=== PATIENT | female | born 1970 | race Two or more races ===

== ENCOUNTER 2016-07-18 15:58 | Emergency (ER) | payer BC ==
[2016-07-18] MEDS ORDERED: IOPAMIDOL 300 (61%) 100 ML VIAL IV ONE (15:59)
[2016-07-18 16:18] LABS: SPECIFIC GRAVITY 1.015 (1.001-1.030); URINE BILIRUBIN NEGATIVE (NEGATIVE); URINE BLOOD TRACE (NEGATIVE); URINE GLUCOSE (UA) NEGATIVE (NEGATIVE); URINE LEUKOCYTE ESTERASE NEGATIVE (NEGATIVE); URINE NITRITE NEGATIVE (NEGATIVE); URINE PROTEIN NEGATIVE (NEGATIVE); URINE UROBILINOGEN NORMAL (0-1 mg/dl)
[2016-07-18] MEDS ORDERED: MAALOX/LIDO2%VISC/SIMETHICONE 40 ML BOT ONE (16:19)
[2016-07-18] MEDS ORDERED: FAMOTIDINE 20 MG TABLET ONE (16:19)
[2016-07-18] MEDS ORDERED: SUCRALFATE 1 G/10 ML DOSE ONE (16:19)
[2016-07-18 16:20] LABS: URINE APPEARANCE CLEAR; URINE COLOR LIGHT YELLOW
[2016-07-18 16:21] LABS: HCG,QUALITATIVE URINE NEGATIVE
[2016-07-18 16:28] LABS: URINE BACTERIA FEW; URINE EPITHELIAL CELLS 0-1 /hpf; URINE RBC 0-2 /hpf; URINE WBC 0-1 /hpf
[2016-07-18 16:36] LABS: ABSOLUTE NEUTROPHIL COUNT 5.1 K/mm3 (1.8-7.7); BASO % 0.4 % (0.2-1.0); EOS # 0.2 (0.0-0.5); EOS % 2.9 % (0.9-2.9); HEMATOCRIT 41.7 % (37.0-47.0); HEMOGLOBIN 14.1 gm/l (12.0-16.0); IMM NEUT% 0.1 % (0-1); MEAN CELL VOLUME 88.5 fl (81.0-99.0); MEAN CORPUSCULAR HEMOGLOBIN 29.9 pg (27.0-31.0); MEAN CORPUSCULAR HGB CONC 33.8 g/dl (33.0-37.0); MEAN PLATELET VOLUME 9.3 fl (7.4-10.4); MONO # 0.5 (0.0-0.8); MONO % 6.3 % (4-12); NEUT % 65.3 % (43-75); PLATELET COUNT 301 K/mm3 (130-400)
[2016-07-18 16:55] LABS: ALB/GLOB RATIO 1.3 (>1.0); ALBUMIN 4.1 gm/dL (3.5-5.7); CALCIUM 9.2 mg/dL (8.6-10.3)
--- NOTE | 2016-07-18 17:26 | CT ---
CT ABDOMEN AND PELVIS WITH CONTRAST HISTORY: Epigastric pain. TECHNIQUE: Following intravenous administration of 100cc of Isovue-300, contiguous axial images were acquired from the lung bases to the ischial tuberosities. Oral contrast was not administered. COMPARISON:None. FINDINGS: LUNG BASES: No gross airspace consolidation or pleural effusion. LIVER: No focal lesion. SPLEEN: No focal lesion. STOMACH: Limited evaluation due to decompression over wall thickening at the anterolateral aspect is suggested. No hiatal hernia. PANCREAS: No focal lesion. ADRENAL GLANDS: No mass effect. KIDNEYS: No focal lesion. No collecting system dilatation. GALLBLADDER: Surgically absent, common bile duct measures up to 14 mm in width. BOWEL: Moderate fecal loading. Limited assessment of the distal colon due to decompression. No abnormal small bowel dilatation. APPENDIX: Normal gas-filled appendix. PELVIC ORGANS: No gross mass effect. Prominence of left-sided periuterine vessels and left ovarian vein. FREE FLUID: No gross free fluid identified. ABDOMINOPELVIC LYMPH NODES: No abnormally enlarged lymph nodes identified. ABDOMINAL AORTA: Normal caliber. OSSEOUS STRUCTURES: No grossly destructive lesions. IMPRESSION: 1. Nonspecific gastric wall thickening, gastritis is possible. Consider endoscopic correlation if there is concern for peptic ulcer disease. 2. Status post cholecystectomy with mild biliary dilatation. No features of acute pancreatitis. 3. Noninflammatory, nonobstructive appearance of bowel. Normal appendix. 4. Prominence of left-sided adnexal vessels and left ovarian vein, which can be seen in the setting of pelvic congestion. Results were electronically transmitted to the electronic medical record at 07/18/2016 at 1722 hours.
== END 2016-07-18 18:07 | disposition home or self-care (01) ==
LOC: ED 15:58
DX: K29.00 Acute gastritis without bleeding (principal)
CPT/HCPCS: 83690; 81025; 85025; 80053; 84484; 81001; 74177; 99284 ×2; 93005; A9270 ×3; Q9967